=== PATIENT | female | born 1995 | race Hispanic/Latino ===

== ENCOUNTER 2018-06-06 18:37 | Emergency (ER) | payer OTHER ==
--- NOTE | 2018-06-06 20:05 | RAD REPORT ---
EXAM DESCRIPTION: RAD - Hand Left 3 View - 06/06/2018 7:39 pm CLINICAL HISTORY: Blunt force trauma distal fifth digit COMPARISON: None. FINDINGS: Fracture of the tuft fifth distal phalanx is present without distraction or angulation def ormity. No air or foreign body in the soft tissues. Hand is otherwise unremarkable. IMPRESSION: Tuft fracture is present fifth distal phalanx. No distraction or angulation deformity.
--- NOTE | 2018-06-06 21:30 | EDPHYS ---
Physician Documentation [facility] Name: Edilma Burroughs Age: 22 yrs Sex: Female : 1995 Arrival Date: 06/06/2018 Time: 18:42 Bed 12 Private MD: River Porter ED Physician Kirk Bruce HPI: 06/06 20:03 This 22 yrs old Female presents to ER via Ambulatory with complaints of Finger jr8 Injury. 20:03 Onset: The symptoms/episode began/occurred acutely, today. The patient has not jr8 experienced similar symptoms in the past. The patient has not recently seen a physician. Patient accidently slammed finger in door earlier. Immediate pain, swelling, and bruising post incident . 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 - Social history:: Smoking status: Patient/guardian denies using tobacco. - Ebola Screening: : No symptoms or risks identified at this time. ROS: 20:03 Eyes: Negative for injury, pain, redness, and discharge, ENT: Negative for injury, jr8 pain, and discharge, Neck: Negative for injury, pain, and swelling, Cardiovascular: Negative for chest pain, palpitations, and edema, Respiratory: Negative for shortness of breath, cough, wheezing, and pleuritic chest pain, Abdomen/GI: Negative for abdominal pain, nausea, vomiting, diarrhea, and constipation, Back: Negative for injury and pain, Skin: Negative for injury, rash, and discoloration, Neuro: Negative for headache, weakness, numbness, tingling, and seizure. 20:03 MS/extremity: Positive for ecchymosis, pain, swelling, tenderness, of the PIP of left little finger and DIP of left little finger. Exam: 20:03 Eyes: Pupils equal round and reactive to light, extra-ocular motions intact. Lids and jr8 lashes normal. Conjunctiva and sclera are non-icteric and not injected. Cornea within normal limits. Periorbital areas with no swelling, redness, or edema. ENT: Nares patent. No nasal discharge, no septal abnormalities noted. Tympanic membranes are normal and external auditory canals are clear. Oropharynx with no redness, swelling, or masses, exudates, or evidence of obstruction, uvula midline. Mucous membranes moist. Neck: Trachea midline, no thyromegaly or masses palpated, and no cervical lymphadenopathy. Supple, full range of motion without nuchal rigidity, or vertebral point tenderness. No Meningismus. Cardiovascular: Regular rate and rhythm with a normal S1 and S2. No gallops, murmurs, or rubs. Normal PMI, no JVD. No pulse deficits. Respiratory: Lungs have equal breath sounds bilaterally, clear to auscultation and percussion. No rales, rhonchi or wheezes noted. No increased work of breathing, no retractions or nasal flaring. Abdomen/GI: Soft, non-tender, with normal bowel sounds. No distension or tympany. No guarding or rebound. No evidence of tenderness throughout. Back: No spinal tenderness. No costovertebral tenderness. Full range of motion. Skin: Warm, dry with normal turgor. Normal color with no rashes, no lesions, and no evidence of cellulitis. Neuro: Awake and alert, GCS 15, oriented to person, place, time, and situation. Cranial nerves II-XII grossly intact. Motor strength 5/5 in all extremities. Sensory grossly intact. Cerebellar exam normal. Normal gait. 20:03 Musculoskeletal/extremity: Extremities: grossly normal except: noted in the left 5th digit: Patient has swelling and bruising to pad of left 5th digit with tenderness and decreased ROM. Patient has minor to moderate subungual hematoma present. No nail injury present. Rest of digits normal , Circulation is intact in all extremities. Sensation intact. Vital Signs: 19:07 BP 134 / 85; Pulse 87; Resp 18; Temp 98.2; Pulse Ox 98% on R/A; Weight 113.4 kg (R); ak1 Height 5 ft. 6 in. (167.64 cm); Pain 10/10; 19:07 Body Mass Index 40.35 (113.40 kg, 167.64 cm) ak1 Procedures: 21:26 Splinting: Splint applied to left 5th digit using finger splint. applied by nurse. jr8 Examined by me, post splint application: neurovascular intact, 2+ distal pulses palpable, brisk capillary refill noted, Patient tolerated well. Performed Trephination of nail. cleaned nail with [place]. Utilized Bovie to make small hole in nail. Blood expressed from wound and decreased post procedure. Patient tolerated well . MDM: 19:17 Patient medically screened. jr8 21:26 Data reviewed: vital signs, nurses notes, radiologic studies, plain films, and as a jr8 result, I will discharge patient. Data interpreted: Pulse oximetry: on room air is 98 %. Interpretation: normal. Counseling: I had a detailed discussion with the patient and/or guardian regarding: the historical points, exam findings, and any diagnostic results supporting the discharge/admit diagnosis, radiology results, the need for outpatient follow up, a hand specialist, to return to the emergency department if symptoms worsen or persist or if there are any questions or concerns that arise at home. 06/06 19:06 Order name: XRAY Hand LEFT 3 View; Complete Time: 20:49 ak1 Administered Medications: No medications were administered Disposition: 06/06/18 21:29 Discharged to Home. Impression: Nondisplaced fracture of distal phalanx of left little finger, Subungual Hematoma . - Condition is Stable. - Discharge Instructions: Finger Fracture, Subungual Hematoma. - Prescriptions for Ibuprofen 800 mg Oral Tablet - take 1 tablet by ORAL route every 12 hours As needed take with food; 20 tablet. Tylenol- Codeine #3 300-30 mg Oral Tablet - take 2 tablets by ORAL route every 6 hours As needed; 20 tablet. - Medication Reconciliation Form, Thank You Letter, Antibiotic Education, Prescription Opioid Use, Work release form form. - Follow up: Lowell Horvath MD; When: 1 week; Reason: Recheck today's complaints, Continuance of care, Re-evaluation by your physician. - Problem is new. - Symptoms have improved. Signatures: Dispatcher [employer] EDMS Hal Patel PA PA jr8 Taylor Tinoco RN RN ak1 Corrections: (The following items were deleted from the chart) 21:42 21:29 06/06/2018 21:29 Discharged to Home. Impression: Nondisplaced fracture of distal ak1 phalanx of left little finger; Subungual Hematoma . Condition is Stable. Forms are Medication Reconciliation Form, Thank You Letter, Antibiotic Education, Prescription Opioid Use. Follow up: Lowell Horvath; When: 1 week; Reason: Recheck today's complaints, Continuance of care, Re-evaluation by your physician. Problem is new. Symptoms have improved. jr8
--- NOTE | 2018-06-06 21:30 | ER ---
Nurse's Notes [facility] Name: Edilma Burroughs Age: 22 yrs Sex: Female : 1995 Arrival Date: 06/06/2018 Time: 18:42 Bed 12 Private MD: River Porter Diagnosis: Nondisplaced fracture of distal phalanx of left little finger;Subungual Hematoma Presentation: 06/06 19:06 Presenting complaint: Patient states: left pinky crushed in steel door at work at 1750. ak1 discoloration noted. Transition of care: patient was not received from another setting of care. Onset of symptoms was June 06, 2018. Risk Assessment: Do you want to hurt yourself or someone else? Patient reports no desire to harm self or others. Initial Sepsis Screen: Does the patient meet any 2 criteria? No. Patient's initial sepsis screen is negative. Does the patient have a suspected source of infection? No. Patient's initial sepsis screen is negative. Care prior to arrival: None. 19:06 Method Of Arrival: Ambulatory ak1 19:06 Acuity: DOREEN 4 ak1 Triage Assessment: 19:07 General: Appears uncomfortable, Behavior is calm, cooperative. Pain: Complains of pain ak1 in left hand. EENT: No signs and/or symptoms were reported regarding the EENT system. Neuro: No deficits noted. Cardiovascular: No deficits noted. Respiratory: No deficits noted. GI: No signs and/or symptoms were reported involving the gastrointestinal system. : No signs and/or symptoms were reported regarding the genitourinary system. Derm: Bruising that is dark purple. Musculoskeletal: Range of motion: limited in DIP of left little finger and PIP of left little finger. Injury Description: Crush injury sustained to left hand was sustained 2-4 hours ago. [employer]GER: 19:07 depo injection ak1 Historical: - Allergies: 19:07 No Known Allergies; ak1 - Home Meds: 19:07 None [Active]; ak1 - PMHx: 19:07 None; ak1 - PSHx: 19:07 None; ak1 - Immunization history:: Adult Immunizations up to date. - Social history:: Smoking status: Patient/guardian denies using tobacco. - Ebola Screening: : No symptoms or risks identified at this time. Screenin:09 Abuse screen: Denies threats or abuse. Denies injuries from another. Nutritional ak1 screening: No deficits noted. Tuberculosis screening: No symptoms or risk factors identified. Fall Risk None identified. Assessment: 21:32 Reassessment: Patient appears in no apparent distress at this time. No changes from ak1 previously documented assessment. finger wrapped and finger splint applied per verbal order from ERP. Vital Signs: 19:07 BP 134 / 85; Pulse 87; Resp 18; Temp 98.2; Pulse Ox 98% on R/A; Weight 113.4 kg (R); ak1 Height 5 ft. 6 in. (167.64 cm); Pain 10/10; 19:07 Body Mass Index 40.35 (113.40 kg, 167.64 cm) ak1 ED Course: 18:42 Patient arrived in ED. mr 18:42 River Porter MD is Private Physician. mr 19:06 Taylor Tinoco, RN is Primary Nurse. ak1 19:07 Triage completed. ak1 19:07 Arm band placed on Patient placed in an exam room, on a stretcher, Patient notified of ak1 wait time. 19:09 Patient has correct armband on for positive identification. Bed in low position. ak1 19:17 Hal Patel PA is PHCP. jr8 19:17 Kirk Bruce MD is Attending Physician. jr8 19:39 XRAY Hand LEFT 3 View In Process Unspecified. EDMS 20:36 No provider procedures requiring assistance completed. Patient did not have IV access ak1 during this emergency room visit. 21:28 Lowell Horvath MD is Referral Physician. jr8 Administered Medications: No medications were administered Outcome: 21:29 Discharge ordered by . jr8 21:32 Discharged to home ambulatory. ak1 21:32 Condition: good 21:32 Discharge instructions given to patient, Instructed on discharge instructions, follow up and referral plans. no drinking with medication, no driving heavy equipment, medication usage, wound care, Demonstrated understanding of instructions, follow-up care, medications, wound care, splint care, Prescriptions given X 2. 21:42 Patient left the ED. ak1 Signatures: Dispatcher [employer] [facility] Deja Bains mr Hal Patel PA PA jr8 Taylor Tinoco, DIANA RN ak1
== END 2018-06-06 21:42 | disposition home or self-care (01) ==
LOC: ER 18:37
PROC: 0H9QXZZ Drainage of Finger Nail, External Approach (ICD-10-PCS; principal; 2018-06-06)
DX: S62.667A Nondisplaced fracture of distal phalanx of left little finger, initial encounter for closed fracture (principal); S60.152A Contusion of left little finger with damage to nail, initial encounter; W23.0XXA Caught, crushed, jammed, or pinched between moving objects, initial encounter; Y93.9 Activity, unspecified; Y92.9 Unspecified place or not applicable
CPT/HCPCS: 99283

== ENCOUNTER 2019-12-08 06:59 | Emergency (ER) | payer OTHER ==
[2019-12-08] MEDS ORDERED: NA CHLORIDE 0.9% 2,000 ML ONE (07:53)
[2019-12-08] MEDS ORDERED: KETOROLAC 30 MG/ML INJ ONE (07:53)
[2019-12-08] MEDS ORDERED: DIPHENHYDRAMINE 50 MG/ML VIAL ONE (07:53)
[2019-12-08] MEDS ORDERED: METOCLOPRAMIDE 10 MG/2mL INJ ONE (07:53)
[2019-12-08 07:58] LABS: Absolute Lymphocytes (CBC) 2.5 K/uL (0.7-4.9); Basophils % 0.7 % (0-1.3); Hematocrit 40.3 % (36.0-45.0); Lymphocytes % 35.2 % (15.3-44.8); MPV 7.1 fL (7.6-11.3); RBC Red Blood Cell Count 5.54 M/uL (3.86-4.86)
--- NOTE | 2019-12-08 08:34 | RAD REPORT ---
EXAM DESCRIPTION: CT - Head Brain Wo Cont - 12/08/2019 8:08 am CLINICAL HISTORY: HEADACHE COMPARISON: Head Brain Wo Cont dated 07/15/2016 TECHNIQUE: Axial 5 mm thick images of the head were obtained without IV contrast. All CT scans are performed using dose optimization technique as appropriate and may include automated exposure control or mA/KV adjustment according to patient size. FINDINGS: No intracranial hemorrhage, mass, edema or shift of mid-line structures. No acute infarcti on changes seen. No abnormal extra-axial fluid collections. Ventricles are normal. Mastoid air cells and visualized portions of the paranasal sinuses are clear. No acute bony findings. IMPRESSION: Negative non-contrast CT head examination.
[2019-12-08 08:36] LABS: ALT/SGPT 69 U/L (12-78); AST/SGOT 59 U/L (15-37); Albumin 3.4 g/dL (3.4-5.0); Alkaline Phosphatase 100 U/L (45-117); BUN Blood Urea Nitrogen 8 mg/dL (7-18); Bicarbonate 27 mmol/L (21-32); Bilirubin Total 0.5 mg/dL (0.2-1.0); Glucose Level 101 mg/dL (74-106); Potassium 3.7 mmol/L (3.5-5.1); Protein, Total 7.5 g/dL (6.4-8.2); Sodium Level 139 mmol/L (136-145)
[2019-12-08] MEDS ORDERED: PROMETHAZINE INJ 25 MG/ML AMP ONE (09:46)
[2019-12-08] MEDS ORDERED: HYDROMORPHONE HCL 1 MG/ML INJ ONE (09:46)
[2019-12-08 09:57] LABS: Urine Blood NEGATIVE (NEG); Urine Glucose NEGATIVE (NEG); Urine Protein TRACE (NEG)
--- NOTE | 2019-12-08 10:12 | EDPHYS ---
Physician Documentation [facility] Name: Edilma Burroughs Age: 24 yrs Sex: Female : 1995 Arrival Date: 12/08/2019 Time: 07:01 Bed 7 Private MD: ED Physician Rafael Dey HPI: 12/07 08:43 This 24 yrs old Female presents to ER via Ambulatory with complaints of ma2 Migraine. 08:43 The patient complains of pain to the right lutheran. Onset: The symptoms/episode ma2 began/occurred gradually, 1 week(s) ago. Severity of symptoms: At its worst the pain was mild, in the emergency department the pain is unchanged. The patient has not experienced similar symptoms in the past. Historical: - Allergies: 07:22 No Known Allergies; ss - Home Meds: 07:22 None [Active]; ss - PMHx: :22 None; ss - PSHx: 07:22 None; ss - Immunization history:: Adult Immunizations up to date. - Social history:: Smoking status: Patient denies any tobacco usage or history of. Patient/guardian denies using alcohol, street drugs, The patient lives with family. - Family history:: not pertinent. ROS: 08:43 Constitutional: Negative for fever, chills, and weight loss. ma2 08:43 All other systems are negative. Exam: 08:43 Constitutional: This is a well developed, well nourished patient who is awake, alert, ma2 and in no acute distress. Head/Face: Normocephalic, atraumatic. Eyes: Pupils equal round and reactive to light, extra-ocular motions intact. Lids and lashes normal. Conjunctiva and sclera are non-icteric and not injected. Cornea within normal limits. Periorbital areas with no swelling, redness, or edema. ENT: Nares patent. No nasal discharge, no septal abnormalities noted. Tympanic membranes are normal and external auditory canals are clear. Oropharynx with no redness, swelling, or masses, exudates, or evidence of obstruction, uvula midline. Mucous membranes moist. Neck: Trachea midline, no thyromegaly or masses palpated, and no cervical lymphadenopathy. Supple, full range of motion without nuchal rigidity, or vertebral point tenderness. No Meningismus. Chest/axilla: Normal chest wall appearance and motion. Nontender with no deformity. No lesions are appreciated. Cardiovascular: Regular rate and rhythm with a normal S1 and S2. No gallops, murmurs, or rubs. Normal PMI, no JVD. No pulse deficits. Respiratory: Lungs have equal breath sounds bilaterally, clear to auscultation and percussion. No rales, rhonchi or wheezes noted. No increased work of breathing, no retractions or nasal flaring. Abdomen/GI: Soft, non-tender, with normal bowel sounds. No distension or tympany. No guarding or rebound. No evidence of tenderness throughout. Skin: Warm, dry with normal turgor. Normal color with no rashes, no lesions, and no evidence of cellulitis. MS/ Extremity: Pulses equal, no cyanosis. Neurovascular intact. Full, normal range of motion. Neuro: Awake and alert, GCS 15, oriented to person, place, time, and situation. Cranial nerves II-XII grossly intact. Motor strength 5/5 in all extremities. Sensory grossly intact. Cerebellar exam normal. Normal gait. Psych: Awake, alert, with orientation to person, place and time. Behavior, mood, and affect are within normal limits. Vital Signs: 07:21 BP 149 / 89; Pulse 100; Resp 14; Temp 98.2(TE); Pulse Ox 98% on R/A; Weight 117.93 kg; ss Height 5 ft. 6 in. (167.64 cm); Pain 8/10; 08:52 BP 134 / 90; Pulse 84; Resp 16; Pulse Ox 99% ; sv 09:47 BP 109 / 68; Pulse 82; Resp 18; Pulse Ox 97% ; sv 10:12 BP 107 / 65; Pulse 77; Resp 15; Pulse Ox 97% on R/A; hb 07:21 Body Mass Index 41.96 (117.93 kg, 167.64 cm) Lisa Coma Score: 08:43 Eye Response: spontaneous(4). Verbal Response: oriented(5). Motor Response: obeys ma2 commands(6). Total: 15. MDM: 07:25 Patient medically screened. ma2 08:43 Differential diagnosis: hypoglycemia, hyponatremia, migraine, uremia. Data reviewed: ma2 vital signs, nurses notes. Counseling: I had a detailed discussion with the patient and/or guardian regarding: the historical points, exam findings, and any diagnostic results supporting the discharge/admit diagnosis, the presence of at least one elevated blood pressure reading (>120/80) during this emergency department visit, the need for outpatient follow up. Response to treatment: the patient's symptoms have markedly improved after treatment. 12/07 07:39 Order name: CBC with Diff; Complete Time: 09:21 ma2 12/07 07:39 Order name: CMP; Complete Time: 09:21 ma2 12/07 07:39 Order name: Head Brain Wo Cont CT; Complete Time: 09:21 ma2 12/07 08:43 Order name: Urine Dipstick--Ancillary (enter results); Complete Time: 10:11 eb 12/07 08:43 Order name: Urine --Ancillary (enter results); Complete Time: 10:11 eb 12/07 07:39 Order name: Urine Dipstick-Ancillary (obtain specimen); Complete Time: 08:45 ma2 Administered Medications: 07:55 Drug: NS 0.9% 2000 ml Route: IV; Rate: 1 bolus; Site: right antecubital; sv 10:20 Follow up: Response: No adverse reaction; IV Status: Completed infusion; IV Intake: sv 2000ml 08:46 Drug: TORadol 30 mg Route: IVP; Site: right antecubital; sv 09:40 Follow up: Response: No adverse reaction sv 08:48 Drug: Benadryl 50 mg Route: IVP; Site: right antecubital; sv 09:41 Follow up: Response: No adverse reaction sv 08:50 Drug: Reglan 10 mg Route: IVP; Site: right antecubital; sv 08:54 Follow up: Response: No adverse reaction sv 09:35 Drug: Phenergan 25 mg Route: IVP; Site: right antecubital; sv 10:50 Follow up: Response: No adverse reaction sv 09:37 Drug: Dilaudid 1 mg {Note: rass1.} Route: IVP; Site: right antecubital; sv 10:50 Follow up: Response: No adverse reaction; Pain is decreased; RASS: Alert and Calm (0) sv Disposition: 12/08/19 10:11 Discharged to Home. Impression: Headache. - Condition is Stable. - Discharge Instructions: Migraine Headache. - Prescriptions for Reglan 10 mg Oral Tablet - take 1 tablet by ORAL route every 6 hours take 30 minutes before meals and at bedtime; 20 tablet. Diclofenac Sodium 75 mg Oral Tablet Sustained Release - take 1 tablet by ORAL route 2 times per day; 30 tablet. - Medication Reconciliation Form, Thank You Letter, Antibiotic Education, Prescription Opioid Use form. - Follow up: Private Physician; When: Tomorrow; Reason: Continuance of care. Signatures: Dispatcher [employer] Paola Cook RN RN Consuelo Gaytan RN RN Nhi Patino RN RN Rafael Dey MD MD ma2 Corrections: (The following items were deleted from the chart) 10:51 10:11 12/08/2019 10:11 Discharged to Home. Impression: Headache. Condition is Stable. Prescriptions for Reglan 10 mg Oral Tablet - take 1 tablet by ORAL route every 6 hours take 30 minutes before meals and at bedtime; 20 tablet, Diclofenac Sodium 75 mg Oral Tablet Sustained Release - take 1 tablet by ORAL route 2 times per day; 30 tablet. and Forms are Medication Reconciliation Form, Thank You Letter, Antibiotic Education, Prescription Opioid Use. Follow up: Private Physician; When: Tomorrow; Reason: Continuance of care. ma2
--- NOTE | 2019-12-08 10:12 | ER ---
Nurse's Notes [facility] Name: Edilma Burroughs Age: 24 yrs Sex: Female : 1995 Arrival Date: 12/08/2019 Time: 07:01 Bed 7 Private MD: Diagnosis: Headache Presentation: 12/07 07:21 Chief complaint: Patient states: "I've had this migraine for the past 4-5 days. I've ss tried taking Excedrin, tramadol and allergy medicine and nothing is helping.". Coronavirus screen: Client denies travel out of the [place] in the last 14 days. Ebola Screen: Patient denies exposure to infectious person. Patient denies travel to an Ebola-affected area in the 21 days before illness onset. Initial Sepsis Screen: Does the patient meet any 2 criteria? No. Patient's initial sepsis screen is negative. Does the patient have a suspected source of infection? No. Patient's initial sepsis screen is negative. Risk Assessment: Do you want to hurt yourself or someone else? Patient reports no desire to harm self or others. Onset of symptoms was December 04, 2019. 07:21 Method Of Arrival: Ambulatory ss 07:21 Acuity: DOREEN 3 ss Historical: - Allergies: 07:22 No Known Allergies; ss - Home Meds: 07:22 None [Active]; ss - PMHx: 07:22 None; ss - PSHx: 07:22 None; ss - Immunization history:: Adult Immunizations up to date. - Social history:: Smoking status: Patient denies any tobacco usage or history of. Patient/guardian denies using alcohol, street drugs, The patient lives with family. - Family history:: not pertinent. Screenin:24 Abuse screen: Denies threats or abuse. Denies injuries from another. Nutritional ss screening: No deficits noted. Tuberculosis screening: Never had TB. Fall Risk No fall in past 12 months (0 pts). Assessment: 07:24 General: Appears in no apparent distress. Behavior is. Pain: Complains of pain in head ss in entire. Pain currently is 8 out of 10 on a pain scale. Quality of pain is described as pressure, aching Pain began 4-5 days ago Is continuous, Aggravated by leaning head side to side. Pt reports that when she leans her head to the R, the right side of her head hurts and same when she leans over to the left. Neuro: Level of Consciousness is awake, alert, obeys commands, Oriented to person, place, time, situation. Cardiovascular: Capillary refill < 3 seconds is brisk in bilateral fingers. Respiratory: Airway is patent Respiratory effort is even, unlabored, Respiratory pattern is regular, symmetrical. GI: Patient currently denies abdominal pain, diarrhea, nausea, vomiting. : No signs and/or symptoms were reported regarding the genitourinary system. Reports "my urine is really yellow". EENT: Oral mucosa is moist. Derm: Skin is intact, is healthy with good turgor, Skin is dry, Skin is pink, warm \\T\\ dry. normal. Musculoskeletal: Circulation, motion, and sensation intact. Range of motion: intact in all extremities, Swelling absent. 08:52 Reassessment: Patient appears in no apparent distress at this time. No changes from sv previously documented assessment. Patient and/or family updated on plan of care and expected duration. Pain level reassessed. Patient is alert, oriented x 3, equal unlabored respirations, skin warm/dry/pink. 09:34 Reassessment: Patient appears in no apparent distress at this time. No changes from sv previously documented assessment. Patient and/or family updated on plan of care and expected duration. Pain level reassessed. Patient is alert, oriented x 3, equal unlabored respirations, skin warm/dry/pink. Stated the medicine did not help with her pain, just made her sleepy. 10:11 Reassessment: Patient appears in no apparent distress at this time. No changes from hb previously documented assessment. Patient and/or family updated on plan of care and expected duration. Pain level reassessed. Vital Signs: 07:21 BP 149 / 89; Pulse 100; Resp 14; Temp 98.2(TE); Pulse Ox 98% on R/A; Weight 117.93 kg; ss Height 5 ft. 6 in. (167.64 cm); Pain 8/10; 08:52 BP 134 / 90; Pulse 84; Resp 16; Pulse Ox 99% ; sv 09:47 BP 109 / 68; Pulse 82; Resp 18; Pulse Ox 97% ; sv 10:12 BP 107 / 65; Pulse 77; Resp 15; Pulse Ox 97% on R/A; hb 07:21 Body Mass Index 41.96 (117.93 kg, 167.64 cm) Lisa Coma Score: 08:43 Eye Response: spontaneous(4). Verbal Response: oriented(5). Motor Response: obeys ma2 commands(6). Total: 15. ED Course: 07:01 Patient arrived in ED. cf2 07:22 Triage completed. ss 07:22 Arm band placed on right wrist. ss 07:24 Patient has correct armband on for positive identification. Bed in low position. Call ss light in reach. 07:25 Rafael Dey MD is Attending Physician. ma2 07:40 Paola Rivera RN is Primary Nurse. sv 07:51 Initial lab(s) drawn, by me, sent to lab. Inserted saline lock: 20 gauge in right dh3 antecubital area, using aseptic technique. Blood collected. 08:08 Head Brain Wo Cont CT In Process Unspecified. EDMS 08:44 Urine collected: clean catch specimen, clear. dh3 10:50 No provider procedures requiring assistance completed. IV discontinued, intact, hb bleeding controlled, No redness/swelling at site. Administered Medications: 07:55 Drug: NS 0.9% 2000 ml Route: IV; Rate: 1 bolus; Site: right antecubital; sv 10:20 Follow up: Response: No adverse reaction; IV Status: Completed infusion; IV Intake: sv 2000ml 08:46 Drug: TORadol 30 mg Route: IVP; Site: right antecubital; sv 09:40 Follow up: Response: No adverse reaction sv 08:48 Drug: Benadryl 50 mg Route: IVP; Site: right antecubital; sv 09:41 Follow up: Response: No adverse reaction sv 08:50 Drug: Reglan 10 mg Route: IVP; Site: right antecubital; sv 08:54 Follow up: Response: No adverse reaction sv 09:35 Drug: Phenergan 25 mg Route: IVP; Site: right antecubital; sv 10:50 Follow up: Response: No adverse reaction sv 09:37 Drug: Dilaudid 1 mg {Note: rass1.} Route: IVP; Site: right antecubital; sv 10:50 Follow up: Response: No adverse reaction; Pain is decreased; RASS: Alert and Calm (0) sv Intake: 10:20 IV: 2000ml; Total: 2000ml. sv Outcome: 10:11 Discharge ordered by . jam 10:50 Discharged to home ambulatory. 10:50 Condition: stable 10:50 Discharge instructions given to patient, Instructed on discharge instructions, follow up and referral plans. medication usage, Demonstrated understanding of instructions, follow-up care, medications, Prescriptions given X 2. 10:51 Patient left the ED. Signatures: Dispatcher [employer] EDMS Paola Rivera RN RN Consuelo Gaytan RN RN Nhi Patino RN RN Gabe, Kusum [email or web address] Rafael Dey MD MD ma2 Jayda Jordan2 Corrections: (The following items were deleted from the chart) 08:15 07:21 Acuity: DOREEN 4 ss
[2019-12-11 22:39] VITALS: TEMP 98.2
[2019-12-11 22:48] VITALS: O2SAT 97
[2019-12-11 22:50] VITALS: BP 107/65
== END 2019-12-08 10:51 | disposition home or self-care (01) ==
LOC: ER 06:59
DX: R51 Headache (principal)
CPT/HCPCS: 36415; 70450; 80053; 81003; 81025; 85025; 96361; 96374; 96375; 99284; J1170; J1200; J2550; J2765; J7030